=== PATIENT | male | born 1960 | race Caucasian/White ===

== ENCOUNTER → 2024-03-15 11:35 | Outpatient (BNVA) | payer OTHER, SELFPAY | PROVIDERS: Visit Provider Physician Assistant Medical | DX: S16.1XXA Strain of muscle, fascia and tendon at neck level, initial encounter (principal); V53.0XXA Driver of pick-up truck or van injured in collision with car, pick-up truck or van in nontraffic accident, initial encounter | CPT/HCPCS: 99203 ==